=== PATIENT | male | born 1965 | race Caucasian/White ===

== ENCOUNTER 2022-08-11 14:34 | Emergency (ER) | payer MEDICAID ==
[2022-08-11] MEDS ORDERED: TETANUS/DIPHTHERIA/PERTUSSIS 0.5 ML SYRINGE IM ONE (14:48)
[2022-08-11] MEDS ORDERED: ACETAMINOPHEN 500 MG TABLET PO STA (14:48)
--- NOTE | 2022-08-11 14:49 | ED Physician Documentation ---
PD HPI HEAD INJURY - Stated complaint Stated Complaint: HEAD INJURY - Chief complaint Chief Complaint: Trauma Hd/Nk - History obtained from History obtained from: Patient (56-year-old gentleman on [employer] for a remote [place] was helping a friend and a 10 pound nail gun fell from about 10 feet and hit him in the back of the head with mild headache. No other injuries. Tetanus is unknown and he thinks he is due. No loss of consciousness.) Review of Systems Constitutional: reports: Reviewed and negative Ears: reports: Reviewed and negative Nose: reports: Reviewed and negative Throat: reports: Reviewed and negative PD PAST MEDICAL HISTORY - Allergies Allergies/Adverse Reactions: Allergies Allergy/AdvReac Type Severity Reaction Status Date / Time No Known Drug Allergies Allergy Verified 08/11/22 14:42 PD ED PE NORMAL - Vitals Vital signs reviewed: Yes - General General: Alert and oriented X 3, No acute distress - HEENT HEENT: PERRL, EOMI, Other (There is a curved laceration with hematoma underlying it on the occiput without scalp tenderness.) - Neck Neck: No bony TTP - Neuro Neuro: Alert and oriented X 3, wallpaperer helper 2-12 intact, No motor deficit, No sensory deficit, Normal speech Eye Opening: Spontaneous Motor: Obeys Commands Verbal: Oriented GCS Score: 15 - Psych Psych: Normal mood, Normal affect Results - Vitals Vitals: Vital Signs - 24 hr 08/11/22 08/11/22 08/11/22 14:38 14:42 15:12 Temperature 35.8 C L 36.5 C 36.5 C Heart Rate 62 62 60 Respiratory 18 18 16 Rate Blood Pressure 152/97 H 152/97 H 140/88 H O2 Saturation 99 99 100 Oxygen O2 Source Room air - Rads (name of study) CT head- Radiology: Final report received, EMP read indepedently Procedures - Laceration (location) occipital scalp Length in cm: 3 Wound type: Superficial Wound preparation: Irrigated copiously NS Skin layer closure: Dermabond Other: Patient tolerated well, No complications, Neurovascular intact, Tetanus booster given Departure - Departure Disposition: 01 Home, Self Care Clinical Impression: On clopidogrel therapy Scalp abrasion Qualifiers: Encounter type: initial encounter Qualified Code(s): S00.01XA - Abrasion of scalp, initial encounter Scalp contusion Qualifiers: Encounter type: initial encounter Qualified Code(s): S00.03XA - Contusion of scalp, initial encounter Condition: Stable Record reviewed to determine appropriate education?: Yes Instructions: ED Head Injury Closed Comments: As far as the scrape on the back of your head, for the most part you can wash it with soap and water and then just leave it alone or apply a little Vaseline or antibiotic ointment to keep it moist. Call your doctor to arrange a follow-up appointment, make the next available appointment. In the interim, return anytime if worse or if new symptoms develop. Discharge Date/Time: 08/11/22 15:59
--- NOTE | 2022-08-11 15:07 | CT Report ---
PROCEDURE: CT brain without contrast INDICATIONS: Trauma. Nail gun vs. head. TECHNIQUE: Noncontrast 4.5 mm thick angled axial sections acquired from the foramen magnum to the vertex. For r adiation dose reduction, the following was used: automated exposure control, adjustment of mA and/or kV according to patient size. COMPARISON: None. FINDINGS: Image quality: Excellent. CSF spaces: Basal cisterns are patent. No extra-axial fluid collections. Ventricles are normal in size and shape. Brain: No midline shift. No intracranial masses or hemorrhage. Zavala-white matter interface is norm al. Skull and face: Calvarium and visualized facial bones are intact, without suspicious lesions. Left parietal scalp injury near the vertex noted consistent with penetrating trauma. Sinuses: Visualized sinuses and mastoids are clear. IMPRESSION: Scalp injury without skull fracture or intracranial hemorrhage Reviewed by: Guru Whitman MD on 08/11/2022 2:06 PM AKST Approved by: Guru Whitman MD on 08/11/2022 2:06 PM AKST Station ID: [id number]
[2022-08-11 16:00] VITALS: BP 140/88
== END 2022-08-11 15:59 | disposition home or self-care (01) ==
LOC: ED 14:34
DX: S01.01XA Laceration without foreign body of scalp, initial encounter (principal); W20.8XXA Other cause of strike by thrown, projected or falling object, initial encounter; Z79.02 Long term (current) use of antithrombotics/antiplatelets
CPT/HCPCS: 12002; 70450; 90471; 90715; 99282; 99284; A9270